=== PATIENT | male | born 1960 | race Native Hawaiian/Other Pacific Islander ===

== ENCOUNTER 2023-01-20 15:59 | Emergency (ER) | payer OTHER ==
[~2023-01-20] VITALS: Ht 195.6 cm; Wt 74.8 kg
[~2023-01-20 15:59] MED LIST: AMLO2.5T PO; CELEXA40 MG PO; DIVA250T2 PO; DIVALPROEX500 MG PO; DOCU100C10 PO; ESCI10TA PO; OLANZAPINE10 M1 IM; OLANZAPINE10 MG PO; OLANZAPINE5 M1 PO; OLANZAPINE5 MG PO; OXCARBAZEPIN300 MG PO; OXYB5TAB56 PO; RISP50IN IM; TRAZ50TA36 PO; [UNRECOGNIZED DRUG - OTHER] PO
[2023-01-20 16:37] LABS: PLATELET COUNT 167 K/uL (142-355)
[2023-01-20 16:50] LABS: POTASSIUM 3.8 mmol/L (3.6-5.2)
[2023-01-20 17:25] VITALS: BP 127/75; TEMP 97.9
[2023-01-20] MEDS ORDERED: PALIPERIDONE ER9 MG PO (18:20)
[2023-01-20] MEDS ORDERED: SOLI5TAB2 PO (18:21)
[2023-01-20] MEDS ORDERED: SERT50TA PO (18:21)
[2023-01-20] MEDS ORDERED: GRALISE600 MG PO (18:23)
[2023-01-20] MEDS ORDERED: DIVA250T PO (18:23)
[2023-01-20] MEDS ORDERED: TRILEPTAL300 MG PO (18:24)
[2023-01-20] MEDS ORDERED: DIVALPROEX500 M1 PO (18:24)
[2023-01-20] MEDS ORDERED: TRAZODONE HYDR150 MG PO (18:25)
[2023-01-20] MEDS ORDERED: TAMS0.4C PO (18:25)
[2023-01-20] MEDS ORDERED: OLANZAPINE ODT PO (18:26)
[2023-01-20] MEDS ORDERED: TYLENOL325 MG PO (18:27)
[2023-01-20] MEDS ORDERED: DONE5TAB PO (18:28)
[2023-01-20] MEDS ORDERED: OMEP20CA PO (18:29)
[2023-02-03] MEDS ORDERED: DIVALPROEX500 MG PO (11:32)
[2023-02-03] MEDS ORDERED: DIVALPROEX250 MG PO (11:32)
[2023-02-03] MEDS ORDERED: ACET-206 PO (11:32)
[2023-02-03] MEDS ORDERED: DONE5TAB PO (11:32)
[2023-02-03] MEDS ORDERED: OXCARBAZEPIN300 MG PO (11:33)
[2023-02-03] MEDS ORDERED: IPRAAER INH (11:33)
[2023-02-03] MEDS ORDERED: MAGNSUS68 PO (11:33)
[2023-02-03] MEDS ORDERED: OLANZAPINE5 MG PO (11:33)
[2023-02-03] MEDS ORDERED: SERT50TA PO (11:34)
[2023-02-03] MEDS ORDERED: TRAZ50TA36 PO (11:34)
== END 2023-01-20 17:30 | disposition still patient (30) ==
LOC: ED 15:59
PROVIDERS: Family Medicine
DX: J18.9 Pneumonia, unspecified organism (principal); Z02.79 Encounter for issue of other medical certificate
CPT/HCPCS: 36415; 80053; 81002; 85027; 87040; 87635; 93005; 96365; 99284; J0456; U0003